=== PATIENT | male | born 1985 | race Caucasian/White ===

== ENCOUNTER 2016-11-28 19:30 | Emergency (ER) | payer OTHER ==
[~2016-11-28] VITALS: Ht 180.3 cm; Wt 72.6 kg
[~2016-11-28 19:30] MED LIST: AMITRIPTYLINE H10 M1; CLONAZEPAM 1 MG1 M1 PO; IBUPROFEN 600600 M1 PO; NORCO 5-325 TA1 EACH PO; PHENERGAN 25 MG25 M1 PO; SEROQUEL 50 MG50 MG PO; VALIUM5 MG PO
[2016-11-28] MEDS ORDERED: SEROQUEL 100 M100 M1 PO (19:43)
[2016-11-28] MEDS ORDERED: REMERON15 MG PO (19:43)
[2016-11-28 20:54] VITALS: BP 132/68
== END 2016-11-28 20:47 | disposition home or self-care (01) ==
LOC: ER 19:30
DX: S61.217A Laceration without foreign body of left little finger without damage to nail, initial encounter (principal); F32.9 Major depressive disorder, single episode, unspecified; F17.210 Nicotine dependence, cigarettes, uncomplicated; F10.99 Alcohol use, unspecified with unspecified alcohol-induced disorder; Z88.6 Allergy status to analgesic agent; W26.8XXA Contact with other sharp object(s), not elsewhere classified, initial encounter; Y93.89 Activity, other specified; Y92.096 Garden or yard of other non-institutional residence as the place of occurrence of the external cause; Y99.0 Civilian activity done for income or pay

== ENCOUNTER 2017-01-01 21:03 | Emergency (ER) | payer OTHER ==
[~2017-01-01] VITALS: Ht 177.8 cm; Wt 68.0 kg
--- NOTE | ~2017-01-01 | EKG ---
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[facility] : 1985 Requested By: Harika Lutz Order Number: [id number] MD: Cody Edwards Measurements Intervals [place] Rate: 61 P: 65 MI: 164 QRS: 46 QRSD: 100 T: 38 QT: 450 QTc: 454 Interpretive Statements Sinus rhythm Probable left ventricular hypertrophy ST elev, probable normal early repol pattern No previous ECG available for comparison Electronically Signed On 01-01-2017 22:00:41 CDT by Cody Edwards [email or web address] <ELECTRONICALLY SIGNED> By: Cody Edwards MD 01/01/172199 39 [id number] Cody Edwards MD /[email or web address]
[~2017-01-01 21:03] MED LIST changes: +NEURONTIN 300300 M1 PO; +REMERON15 MG PO; +SEROQUEL 100 M100 M1 PO
[2017-01-01 21:13] LABS: ABSOLUTE NEUTROPHILS 3.5 thou/uL (1.4-8.2); BASOPHILS 0.8 % (0.0-2.0); EOSINOPHILS 3.4 % (0.0-3.0); HEMATOCRIT 43.1 % (42.0-52.0); LYMPHOCYTES 41.5 % (24.0-44.0); MCH 33.7 pg (26.0-34.0); MCHC 34.9 g/dL (28.0-37.0); MCV 96.7 fL (80.0-100.0); MONOCYTES 11.6 % (1.0-8.0); PLATELET COUNT 204 thou/uL (150-400); POLYS 42.7 % (36.0-66.0); RBC 4.46 mil/uL (4.50-6.00); RDW 13.6 % (10.5-14.5); WBC 8.1 thou/uL (4.0-11.0)
[2017-01-01 21:14] LABS: MANUAL DIFF NO
[2017-01-01 21:27] LABS: CREATININE 0.8 mg/dL (0.7-1.3); POTASSIUM 3.1 mmol/L (3.5-5.1)
[2017-01-01 22:19] VITALS: BP 106/47
== END 2017-01-01 22:21 | disposition home or self-care (01) ==
LOC: ER 21:03
PROVIDERS: Emergency Medicine
DX: F19.90 Other psychoactive substance use, unspecified, uncomplicated (principal); E87.6 Hypokalemia; F17.210 Nicotine dependence, cigarettes, uncomplicated; F32.9 Major depressive disorder, single episode, unspecified; Z86.19 Personal history of other infectious and parasitic diseases; Z88.8 Allergy status to other drugs, medicaments and biological substances

== ENCOUNTER 2017-04-10 20:00 | Emergency (ER) | payer OTHER ==
[~2017-04-10] VITALS: Ht 177.8 cm; Wt 70.3 kg
[2017-04-10] MEDS ORDERED: HYDROCODONE-AP1 EAC6 PO (21:38)
== END 2017-04-10 22:00 | disposition home or self-care (01) ==
LOC: ER 20:00
DX: S61.412A Laceration without foreign body of left hand, initial encounter (principal); F17.210 Nicotine dependence, cigarettes, uncomplicated; F32.9 Major depressive disorder, single episode, unspecified; B19.20 Unspecified viral hepatitis C without hepatic coma; Z88.6 Allergy status to analgesic agent